=== PATIENT | female | born 1970 | race Caucasian/White ===

== ENCOUNTER 2020-10-18 17:19 | Emergency (ER) | payer SELFPAY ==
[2020-10-18 17:26] VITALS: BP 146/83
--- NOTE | 2020-10-18 19:20 | ER Document Report ---
ED Medical Screen (RME) - General Chief Complaint: Headache Stated Complaint: HEADACHE,NECK PAIN Time Seen by Provider: 10/18/20 19:17 Mode of Arrival: Ambulatory Information source: Patient Notes: 50-year-old female presents to ED for headache since Friday. She states she is taking her Maxalt as per prescribed and it is not helping her at all. She states she was prescribed it 2 weeks ago and she is used 6 of the tablets but they have not helped her since Friday. [facility] is who prescribed her Maxalt. She states she is never taken anything for her headaches before that. She states they have been going on since she started menopause. She states she has not been to [facility] or endocrinology because she does not have insurance. We will give Compazine and Benadryl and she will be seen by another provider I have greeted and performed a rapid initial assessment of this patient. A comprehensive ED assessment and evaluation of the patient, analysis of test results and completion of medical decision making process will be conducted by an additional ED providers. Physical Exam - Vital signs Vitals: Temp Pulse Resp BP Pulse Ox 98.0 F 106 H 20 146/83 H 98 10/18/20 17:26 10/18/20 17:26 10/18/20 17:26 10/18/20 17:26 10/18/20 17:26 Course - Vital Signs Vital signs: Temp Pulse Resp BP Pulse Ox 98.0 F 106 H 20 146/83 H 98 10/18/20 17:26 10/18/20 17:26 10/18/20 17:26 10/18/20 17:26 10/18/20 17:26
[2020-10-18] MEDS ORDERED: DIPHENHYDRAMINE HCL 50 MG CAPSULE PO ONE (19:21)
[2020-10-18] MEDS ORDERED: PROCHLORPERAZINE MALEATE 10 MG TABLET PO ONE (19:21)
== END 2020-10-19 00:01 | disposition left against medical advice (07) ==
LOC: ER 17:19
DX: R51.9 Headache, unspecified (principal); Z53.20 Procedure and treatment not carried out because of patient's decision for unspecified reasons
CPT/HCPCS: 99281; S0183